=== PATIENT | female | born 1995 | race Caucasian/White ===

== ENCOUNTER 2020-09-25 16:19 | Emergency (ER) | payer OTHER ==
[2020-09-25 17:00] LABS: BASOPHILS % (AUTO) 0.4 %; EOSINOPHILS # (AUTO) 0.1 10^3/uL (0.0-0.7); EOSINOPHILS % (AUTO) 1.4 %; HCT - HEMATOCRIT 37.8 % (37.0-47.0); HGB - HEMOGLOBIN 12.9 g/dL (12.0-16.0); LYMPHOCYTES # (AUTO) 2.7 10^3/uL (1.5-3.5); LYMPHOCYTES % (AUTO) 32.1 %; MEAN CORPUSCULAR HEMOGLOBIN 29.3 pg (27.0-31.0); MEAN CORPUSCULAR HGB CONC 34.1 g/dL (32.0-36.0); MEAN CORPUSCULAR VOLUME 85.7 fL (81.0-99.0); MEAN PLATELET VOLUME 9.9 fL (7.9-10.8); MONOCYTES # (AUTO) 0.5 10^3/uL (0.0-1.0); MONOCYTES % (AUTO) 5.7 %; NEUTROPHILS # (AUTO) 5.1 10^3/uL (1.5-6.6); PLT - PLATELET COUNT 217 10^3/uL (130-450); RED BLOOD COUNT 4.41 10^6/uL (4.20-5.40); WHITE BLOOD COUNT 8.5 x10^3/uL (4.8-10.8)
[2020-09-25 17:13] LABS: ALBUMIN 3.6 g/dL (3.2-5.5); ALBUMIN/GLOBULIN RATIO 1.1 (1.0-2.2); BILIRUBIN,TOTAL 0.5 mg/dL (0.2-1.0); CALCIUM 8.9 mg/dL (8.5-10.3); CREATININE 0.5 mg/dL (0.4-1.0); POTASSIUM 3.3 mmol/L (3.5-5.0); TOTAL PROTEIN 6.8 g/dL (6.7-8.2)
[2020-09-25 17:28] LABS: BILIRUBIN,URINE NEGATIVE (NEGATIVE); GLUCOSE, URINE (UA) NEGATIVE (NEGATIVE); KETONES,URINE (UA) NEGATIVE (NEGATIVE); LEUKOCYTE ESTERASE, URINE NEGATIVE (NEGATIVE); NITRITE,URINE NEGATIVE (NEGATIVE); OCCULT BLOOD,URINE NEGATIVE (NEGATIVE); PROTEIN,URINE NEGATIVE (NEGATIVE); UROBILINOGEN,URINE 0.2 (NORMAL) E.U./dL (NORMAL)
[2020-09-25 17:31] LABS: CLARITY,URINE CLEAR (CLEAR)
[2020-09-25 18:57] VITALS: BP 131/80
--- NOTE | 2020-09-25 19:06 | ED Physician Documentation ---
History of Present Illness - Stated complaint Stated Complaint: FEMALE , +PREG - Chief complaint Chief Complaint: Abd Pain - History obtained from History obtained from: Patient - Additonal information Additional information: 25-year-old G1 at 11 weeks has had 2 days of pinkish vaginal discharge. No cramping or bleeding. Had Chlamydia at 8 weeks has already been treated. Review of Systems Constitutional: reports: Reviewed and negative Ears: reports: Reviewed and negative Nose: reports: Reviewed and negative Throat: reports: Reviewed and negative Cardiac: reports: Reviewed and negative PD PAST MEDICAL HISTORY - Allergies Allergies/Adverse Reactions: Allergies Allergy/AdvReac Type Severity Reaction Status Date / Time No Known Drug Allergies Allergy Verified 09/25/20 16:26 - Social History Does the pt smoke?: No Smoking Status: Never smoker PD ED PE NORMAL - Vitals Vital signs reviewed: Yes - General General: Alert and oriented X 3, No acute distress - Abdomen Abdomen: Other (Nontender abdominal examination, bedside a transabdominal ultrasound shows a vigorous live IUP with a heart rate of 160) - Neuro Neuro: Alert and oriented X 3, Normal speech Results - Vitals Vitals: Vital Signs - 24 hr 09/25/20 09/25/20 16:22 18:56 Temperature 36.9 C Heart Rate 120 H 96 Respiratory 18 16 Rate Blood Pressure 137/85 H 131/80 H O2 Saturation 98 100 Oxygen O2 Source Room air - Labs Labs: Laboratory Tests 09/25/20 09/25/20 09/25/20 16:56 16:56 17:19 WBC 8.5 RBC 4.41 Hgb 12.9 Hct 37.8 MCV 85.7 MCH 29.3 MCHC 34.1 RDW 12.0 Plt Count 217 MPV 9.9 Neut # (Auto) 5.1 Lymph # (Auto) 2.7 [place] # (Auto) 0.5 Eos # (Auto) 0.1 Baso # (Auto) 0.0 Absolute Nucleated RBC 0.00 Nucleated RBC % 0.0 Sodium 135 Potassium 3.3 L Chloride 103 Carbon Dioxide 23 Anion Gap 9.0 BUN 9 Creatinine 0.5 Estimated GFR (MDRD) 153 Glucose 129 H Calcium 8.9 Total Bilirubin 0.5 AST 16 ALT 25 Alkaline Phosphatase 33 L Total Protein 6.8 Albumin 3.6 Globulin 3.2 Albumin/Globulin Ratio 1.1 Lipase 23 Urine Color YELLOW Urine Clarity CLEAR Urine pH 6.0 Ur Specific [place] 1.025 Urine Protein NEGATIVE Urine Glucose (UA) NEGATIVE Urine Ketones NEGATIVE Urine Occult Blood NEGATIVE Urine Nitrite NEGATIVE Urine Bilirubin NEGATIVE Urine Urobilinogen 0.2 (NORMAL) Ur Leukocyte Esterase NEGATIVE Ur Microscopic Review NOT INDICATED Urine Culture Comments NOT INDICATED Departure - Departure Disposition: 01 Home, Self Care Clinical Impression: Vaginal discharge Condition: Good Record reviewed to determine appropriate education?: Yes Comments: Lab work and urinalysis look fine. If chlamydia test is positive we will call you in a couple of days, otherwise no specific therapy is needed as the baby looks great and you do need to follow-up with your OB next week though.
--- NOTE | 2020-09-26 12:12 | ED Physician Documentation ---
ED Addendum - Addendum Addendum: 09/26/20 12:11 The STD test cancelled by lab staff without notifying me. Note stated "no specimen received," but urine was in the lab. I tried to call patient to notify but no answer and voicemail not setup to take messages.
== END 2020-09-25 19:12 | disposition home or self-care (01) ==
LOC: ED 16:19
DX: O26.859 Spotting complicating pregnancy, unspecified trimester (principal); Z3A.11 11 weeks gestation of pregnancy
CPT/HCPCS: 36415; 80053; 81001; 81003; 83690; 85025; 87086; 87491; 87591; 87661; 87801; 99282; 99283